=== PATIENT | male | born 1960 | race Caucasian/White ===

== ENCOUNTER 2017-07-26 05:51 | Day surgery (SDC) | payer OTHER ==
[2017-07-24 14:11] LABS: ALANINE AMINOTRANSFERASE 72 U/L (12-78); ALBUMIN 3.6 g/dL (3.4-5.0); ANION GAP 6 mmol/L (5-15); CALCIUM 8.8 mg/dL (8.5-10.1); CHLORIDE 104 mmol/L (98-107); CREATININE 1.13 mg/dL (0.7-1.3)
[2017-07-24 14:14] LABS: ALKALINE PHOSPHATASE 85 U/L (45-117); BILIRUBIN,TOTAL 0.5 mg/dL (0.2-1.0); TOTAL PROTEIN 8.1 g/dL (6.4-8.2)
[~2017-07-26] VITALS: Ht 175.3 cm; Wt 138.6 kg
[~2017-07-26 05:51] MED LIST: ATOR20TA PO; CINN500C2 PO; GLIP5TAB10 PO; LISI-167 PO; METF500T4 PO; OMEG100023 PO
[2017-07-26] MEDS ORDERED: LACTATED RINGERS 1,000 ML IV SCH (07:01)
[2017-07-26 07:02] VITALS: BP 180/83
[2017-07-26] MEDS ORDERED: PROPOFOL 10 MG/ML, 20ML ONE (07:55)
== END 2017-07-26 09:30 ==
LOC: OUT 05:51
PROVIDERS: ATTEND Internal Medicine Gastroenterology
DX: Z12.11 Encounter for screening for malignant neoplasm of colon (principal); K57.30 Diverticulosis of large intestine without perforation or abscess without bleeding; K63.5 Polyp of colon; E11.9 Type 2 diabetes mellitus without complications; E78.00 Pure hypercholesterolemia, unspecified; G47.30 Sleep apnea, unspecified; Z87.891 Personal history of nicotine dependence; Z98.0 Intestinal bypass and anastomosis status
CPT/HCPCS: 36415; 45385; 80053; 82962; 88305; 93005; J2704; J7120